=== PATIENT | male | born 1990 | race Caucasian/White ===

== ENCOUNTER 2017-01-13 19:51 | Emergency (ER) | payer MEDICAID ==
[2017-01-13 19:52] VITALS: BMI 32.1
[2017-01-13 20:12] VITALS: BP 126/67; TEMP 98.4
[2017-01-13] MEDS ORDERED: Albuterol-Ipratrop 3 mg / 0.5 (3 ml) UD INH STA (20:46)
[2017-01-13] MEDS ORDERED: Albuterol-Ipratrop 3 mg / 0.5 (3 ml) UD ONE (21:12)
--- NOTE | 2017-01-13 21:13 | C.PDOC ---
History Of Present Illness 26 year old male with a history of asthma, presents to the ED with complaints of an intermittent dry non-productive cough for the past 3 weeks. Patient states he uses his nebulizer machine at home 4-5 times daily and occasionally 2 puffs of his albuterol puffer. He does not have an aerochamber spacer and denies chest pain, vomiting, fever, or any other complaints. Patient is showing poor puffer technique in the ED. Time Seen by Provider: 01/13/17 20:33 Chief Complaint (Nursing): Cough, Cold, Congestion History Per: Patient History/Exam Limitations: no limitations Onset/Duration Of Symptoms: Days, Intermittent Episodes Current Symptoms Are (Timing): Still Present Severity: Mild Past Medical History Reviewed: Historical Data, Nursing Documentation, Vital Signs Vital Signs: Last Vital Signs Temp 98.4 F 01/13/17 20:08 Pulse 82 01/13/17 20:08 Resp 20 01/13/17 20:08 BP 126/67 01/13/17 20:08 Pulse Ox 97 01/13/17 21:17 - Medical History PMH: Asthma - [facility] Procedures TETANUS TOXOID ADMINIST (03/28/13) Family History: States: Unknown Family Hx - Social History Hx Tobacco Use: Yes (Smokes hookah) Hx Alcohol Use: Yes Hx Substance Use: No - Immunization History Hx Tetanus Toxoid Vaccination: No Hx Influenza Vaccination: No Hx Pneumococcal Vaccination: No Review Of Systems Except As Marked, All Systems Reviewed And Found Negative. Constitutional: Negative for: Fever, Chills Cardiovascular: Negative for: Chest Pain, Palpitations Respiratory: Positive for: Cough. Negative for: Shortness of Breath, Sputum Gastrointestinal: Negative for: Vomiting Physical Exam - Physical Exam Appears: Non-toxic, No Acute Distress Skin: Warm, Dry Head: Atraumatic, Normacephalic Eye(s): bilateral: Normal Inspection Oral Mucosa: Moist Neck: Supple Chest: Symmetrical, No Deformity Cardiovascular: Rhythm Regular, No Murmur Respiratory: Normal Breath Sounds, No Accessory Muscle Use, No Rales, No Rhonchi , No Wheezing Extremity: Normal ROM Neurological/Psych: Oriented x3, Normal Speech, Normal Cognition ED Course And Treatment O2 Sat by Pulse Oximetry: 97 (Room air) Pulse Ox Interpretation: Normal - Radiology CXR: Interpreted by Me CXR Interpretation: Yes: No Acute Disease Progress Note: CXR ordered and reviewed. Patien treated with DuoNeb, Pepcid, and Prednisone. Medical Decision Making Medical Decision Making: baseline mild asthma (cough variant) though pt with top 3 asthma provokers @ home: cat, cockroach dander, and smoking (hooka) educated on limiting exposures. Educated on Aerochamber Spacer use. Disposition Doctor Will See Patient In The: Office Counseled Patient/Family Regarding: Studies Performed, Diagnosis - Disposition Disposition: HOME/ ROUTINE Disposition Time: 21:28 Condition: GOOD - Clinical Impression Clinical Impression: Cough - Scribe Statement The provider has reviewed the documentation as recorded by the Scribe Juan Baron. Provider Attestation: All medical record entries made by the Scribe were at my direction and personally dictated by me. I have reviewed the chart and agree that the record accurately reflects my personal performance of the history, physical exam, medical decision making, and the department course for this patient. I have also personally directed, reviewed, and agree with the discharge instructions and disposition.
[2017-01-13 22:06] VITALS: PULSE 70; RESP 16; O2SAT 98
--- NOTE | 2017-01-14 10:51 | RAD ---
HISTORY: chronic cough/asthma COMPARISON: None available. TECHNIQUE: Chest PA and lateral FINDINGS: LUNGS: Minimal interstitial prominence and peribronchiolar cuffing centrally. No focal consolidation. Please note that chest x-ray has limited sensitivity for the detection of pulmonary masses. PLEURA: No significant pleural effusion identified. No definite pneumothorax . CARDIOVASCULAR: The cardiomediastinal silhouette appears within normal limits of size. OSSEOUS STRUCTURES: Degenerative changes. VISUALIZED UPPER ABDOMEN: Unremarkable. OTHER FINDINGS: None. IMPRESSION: Findings consistent with mild reactive or inflammatory airway disease.
== END 2017-01-13 22:06 | disposition home or self-care (01) ==
LOC: C.ER 19:51
DX: R05 Cough (principal)

== ENCOUNTER 2018-06-08 13:38 | Emergency (ER) | payer SELFPAY ==
[2018-06-08 13:50] VITALS: BP 139/79; PULSE 88; RESP 18; TEMP 98.1; O2SAT 97
[2018-06-08] MEDS ORDERED: Tdap Vaccine 0.5 ml Vial (10-64 yrs) IM ONE ×2 (14:06→14:22)
[2018-06-08] MEDS ORDERED: Naproxen 550 mg Tab PO STA (14:06)
[2018-06-08] MEDS ORDERED: Bacitracin 500 Units/gm Oint Foilpak UD TOP ONE (14:06)
[2018-06-08] MEDS ORDERED: Bacitracin 500 Units/gm Oint Foilpak UD ONE (14:06)
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
[2018-06-08] MEDS ORDERED: Naproxen 550 mg Tab PO ONE (14:22)
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
== END 2018-06-08 15:06 | disposition home or self-care (01) ==
LOC: C.ER 13:38
DX: S40.011A Contusion of right shoulder, initial encounter (principal); S50.811A Abrasion of right forearm, initial encounter; S90.811A Abrasion, right foot, initial encounter; W19.XXXA Unspecified fall, initial encounter; B35.3 Tinea pedis